=== PATIENT | female | born 1990 | race Two or more races ===

== ENCOUNTER 2017-08-22 09:59 | Outpatient (CLI) | payer OTHER | END 2017-08-22 10:28 | disposition home or self-care (01) | LOC: RAD 501 09:59 | DX: S92.354A Nondisplaced fracture of fifth metatarsal bone, right foot, initial encounter for closed fracture (principal) ==

== ENCOUNTER 2018-07-01 19:07 | Emergency (ER) | payer OTHER ==
[~2018-07-01] VITALS: Ht 154.9 cm; Wt 56.2 kg
[2018-07-01] MEDS ORDERED: BACTRIM DS TAB1 EACH PO (22:04)
== END 2018-07-01 22:07 | disposition home or self-care (01) ==
LOC: ER 19:07
DX: R30.0 Dysuria (principal); N39.0 Urinary tract infection, site not specified

== ENCOUNTER 2025-01-21 07:45 | Inpatient (IN) | payer OTHER ==
[~2025-01-21] VITALS: Ht 154.9 cm; Wt 50.8 kg
[~2025-01-21 07:45] MED LIST: BACTRIM DS TAB1 EACH PO
[2025-01-21 09:41] LABS: BASO % 0.9 % (0.1-1.2); EOS # 0.60 (0.04-0.54); EOS % 9.3 % (0.7-7.0); LYMPH # 2.35 (1.18-3.74); LYMPH % 36.5 % (19.3-53.1); MEAN PLATELET VOLUME 10.50 fl (9.4-12.4); MONO # 0.30 (0.24-0.82); MONO % 4.7 % (4.7-12.5); NEUT # 3.11 (1.56-6.13); NEUT % 48.4 % (34.0-71.1); RED CELL DISTRIBUTION WIDTH 11.7 % (11.6-14.4)
[2025-01-21 09:46] LABS: URINE APPEARANCE Clear; URINE BILIRRUBIN Negative (NEGATIVE); URINE BLOOD Negative; URINE COLOR Yellow; URINE GLUCOSE Negative (NEGATIVE); URINE KETONE Negative (NEGATIVE); URINE LEUKOCYTE Negative; URINE NITRATE Negative; URINE PROTEIN Negative (NEGATIVE); URINE UROBILINOGEN 0.2 E.U./dl
[2025-01-21 09:54] LABS: URINE BACTERIA 931.2 uL (0.0-1933); URINE EPITHELIAL CELLS 26.5 uL (0.0-38.8); URINE WBC 12.1 uL (0.0-23.2)
[2025-01-21 10:04] LABS: INR 1.02
[2025-01-21 10:04] LABS: URINE CAST 0.00 uL (0.0-1.40); URINE RBC 0.1 uL (0.0-20.8)
[2025-01-21 10:59] LABS: ALT/SGPT 21 U/L (12-78); AST/SGOT 14 U/L (15-37); BILIRUBIN TOTAL 0.63 mg/dL (0.3-1.2); BUN CREA RATIO 15 (7.0-25.0); CREATININE SERUM 0.72 mg/dL (0.55-1.02); GFR 93.87; GLOBULINA 3.5 G/DL (2.4-3.5); GLUCOSE FASTING 79 mg/dL (65-100); OSMOLALITY SERUM 278 MOSM/KG (275-295)
[2025-01-21 11:01] LABS: HCG QUANTITATIVE < 1 mUI/mL (1-3)
[2025-01-21 11:09] VITALS: BP 96/69
[2025-01-21 11:13] LABS: RH POSITIVE
[2025-01-26] MEDS ORDERED: CEFAZOLIN SODIUM 1,000 MG VIAL IV ONE (13:15)
[2025-01-26] MEDS ORDERED: POVIDONE-IODINE 118 ML BOTT TOP ONE (13:15)
[2025-01-26] MEDS ORDERED: VASOPRESSIN 20 UNITS/ML VIAL IJ ONE (14:15)
[2025-01-26] MEDS ORDERED: METHYLENE BLUE 50MG/10ML AMP IV ONE (14:15)
[2025-01-26] MEDS ORDERED: TRANEXAMIC ACID 100MG/1ML (1000MG) AMPUL IV ONE (14:15)
[2025-01-26] MEDS ORDERED: MORPHINE SULFATE 4 MG/ML VIAL IV ONE (17:25)
[2025-01-26] MEDS ORDERED: THROMBIN,HU/FIBRINOGEN/CALCIUM 10 ML SYRINGE TOP ONE (17:45)
[2025-01-26] MEDS ORDERED: SUGAMMADEX SODIUM 200 MG/2 ML VIAL IV ONE (17:45)
[2025-01-26] MEDS ORDERED: VISTASEAL DUAL APPICATOR 1 EACH APPL TOP ONE (17:45)
[2025-01-26] MEDS ORDERED: RINGERS SOLUTION,LACTATED 1,000 ML IV SCH (18:45)
[2025-01-26] MEDS ORDERED: ONDANSETRON HCL 2 MG/ML VIAL IV PRN (18:45)
[2025-01-26] MEDS ORDERED: KETOROLAC TROMETHAMINE 30 MG VIAL IV NR (19:00)
[2025-01-26] MEDS ORDERED: GABAPENTIN 300 MG CAPSULE PO SCH (19:00)
[2025-01-26] MEDS ORDERED: SIMETHICONE 125 MG CAPSULE PO NR (19:00)
[2025-01-26] MEDS ORDERED: ACETAMINOPHEN 500 MG GEL..CAP PO SCH (20:00)
[2025-01-26 20:03] VITALS: BP 106/70
[2025-01-26 20:58] LABS: BASO % 0.2 % (0.1-1.2); EOS # 0.01 (0.04-0.54); EOS % 0.1 % (0.7-7.0); LYMPH # 0.94 (1.18-3.74); LYMPH % 5.8 % (19.3-53.1); MEAN PLATELET VOLUME 11.00 fl (9.4-12.4); MONO # 0.87 (0.24-0.82); MONO % 5.4 % (4.7-12.5); NEUT # 14.32 (1.56-6.13); NEUT % 88.2 % (34.0-71.1); RED CELL DISTRIBUTION WIDTH 11.7 % (11.6-14.4)
[2025-01-26 22:11] LABS: BASO % 0.2 % (0.1-1.2); EOS # 0.00 (0.04-0.54); EOS % 0.0 % (0.7-7.0); LYMPH # 1.05 (1.18-3.74); LYMPH % 6.8 % (19.3-53.1); MEAN PLATELET VOLUME 10.40 fl (9.4-12.4); MONO # 0.56 (0.24-0.82); MONO % 3.6 % (4.7-12.5); NEUT # 13.67 (1.56-6.13); NEUT % 89.1 % (34.0-71.1); RED CELL DISTRIBUTION WIDTH 11.6 % (11.6-14.4)
[2025-01-27] MEDS ORDERED: KETOROLAC TROMETHAMINE 30 MG VIAL IV SCH
[2025-01-27] MEDS ORDERED: GABAPENTIN 300 MG CAPSULE PO SCH (01:00)
[2025-01-27 01:17] VITALS: BP 103/63
[2025-01-27 05:56] VITALS: BP 90/60
[2025-01-27 06:52] LABS: BASO % 0.5 % (0.1-1.2); EOS # 0.07 (0.04-0.54); EOS % 0.7 % (0.7-7.0); LYMPH # 2.51 (1.18-3.74); LYMPH % 24.7 % (19.3-53.1); MEAN PLATELET VOLUME 11.20 fl (9.4-12.4); MONO # 0.75 (0.24-0.82); MONO % 7.4 % (4.7-12.5); NEUT # 6.75 (1.56-6.13); NEUT % 66.5 % (34.0-71.1); RED CELL DISTRIBUTION WIDTH 11.6 % (11.6-14.4)
[2025-01-27 08:14] VITALS: BP 90/60
[2025-01-27] MEDS ORDERED: SIMETHICONE 125 MG CAPSULE PO SCH (09:00)
[2025-01-27 11:02] LABS: BASO % 0.6 % (0.1-1.2); EOS # 0.26 (0.04-0.54); EOS % 3.6 % (0.7-7.0); LYMPH # 1.91 (1.18-3.74); LYMPH % 26.5 % (19.3-53.1); MEAN PLATELET VOLUME 10.70 fl (9.4-12.4); MONO # 0.62 (0.24-0.82); MONO % 8.6 % (4.7-12.5); NEUT # 4.35 (1.56-6.13); NEUT % 60.4 % (34.0-71.1); RED CELL DISTRIBUTION WIDTH 11.7 % (11.6-14.4)
== END 2025-01-27 12:37 | disposition home or self-care (01) | DRG 743 ==
LOC: SURH 01-26 07:00 → O/R 01-26 10:00 → OB/GYN 01-26 17:56
PROVIDERS: ADMIT Student in an Organized Health Care Education/Training Program; ATTEND Student in an Organized Health Care Education/Training Program
PROC: 3E1P88Z Irrigation of Female Reproductive using Irrigating Substance, Via Natural or Artificial Opening Endoscopic (ICD-10-PCS; 2025-01-26)
PROC: 8E0W4CZ Robotic Assisted Procedure of Trunk Region, Percutaneous Endoscopic Approach (ICD-10-PCS; 2025-01-26)
PROC: 0UB94ZZ Excision of Uterus, Percutaneous Endoscopic Approach (ICD-10-PCS; principal; 2025-01-26 07:00)
DX: D25.9 Leiomyoma of uterus, unspecified (principal); N94.6 Dysmenorrhea, unspecified; N93.9 Abnormal uterine and vaginal bleeding, unspecified; Z98.890 Other specified postprocedural states
CPT/HCPCS: 58546; 49320; 58350; S2900